=== PATIENT | female | born 1965 | race Caucasian/White ===

== ENCOUNTER 2022-10-17 15:58 | Emergency (ER) | payer OTHER ==
[~2022-10-17] VITALS: Ht 162.6 cm; Wt 63.5 kg
[2022-10-17 16:48] VITALS: BP_SYST 139; PULSE 120; RESP 16; TEMP 97.8; O2SAT 98
--- NOTE | 2022-10-17 16:53 | NUR ---
Patient triaged and placed in waiting room. Pt C/O RUQ pain X3 years. States she needs a colonscopy. VSS and patient appears in no acute distress at this time. Accompanied by family, awaiting available bed, and MD notified of need for MSE.
[2022-10-17 18:35] LABS: BASOPHILS % (AUTO) 0.4 % (0.0-2.0); EOSINOPHILS % (AUTO) 0.1 % (0.0-4.0); HEMATOCRIT 42.3 % (36-48); HEMOGLOBIN 14.3 g/dL (12.0-16.0); LYMPHOCYTES # (AUTO) 0.4 K/uL (1.0-5.5); LYMPHOCYTES % (AUTO) 9.8 % (20.5-51.5); MEAN CORPUSCULAR HEMOGLOBIN 32 pg (27-31); MEAN CORPUSCULAR HGB CONC 34 % (32-36); MEAN CORPUSCULAR VOLUME 94 fL (79.0-98.0); MONOCYTES # (AUTO) 0.4 K/uL (0.0-1.0); MONOCYTES % (AUTO) 8.3 % (1.7-9.3); NEUTROPHILS # (AUTO) 3.6 K/uL (1.8-7.7); NEUTROPHILS % (AUTO) 81.4 % (40.0-70.0); PLATELET COUNT (AUTO) 190 K/uL (130-430); RED BLOOD CELL COUNT(AUTO) 4.49 MIL/uL (4.2-6.2); WHITE BLOOD COUNT (AUTO) 4.4 K/uL (4.8-10.8)
[2022-10-17 18:50] LABS: BILIRUBIN,URINE NEGATIVE (NEGATIVE); BLOOD, URINE NEGATIVE (NEGATIVE); CLARITY/URINE SL CLOUDY (CLEAR); COLOR,URINE YELLOW (YELLOW); GLUCOSE,URINE NEGATIVE (NEGATIVE); KETONES,URINE 1+ (NEGATIVE); LEUKOCYTE ESTERASE ,URINE NEGATIVE (NEGATIVE); NITRITE, URINE NEGATIVE (NEGATIVE); PROTEIN URINE 1+ (NEGATIVE); UROBILINOGEN,URINE 0.2 (0.2-1.0)
[2022-10-17 19:01] LABS: ALBUMIN 4.3 g/dL (3.4-4.8); CALCIUM 10.1 mg/dL (8.4-11.0); CREATININE 0.71 mg/dL (0.55-1.30); TOTAL BILIRUBIN 0.6 mg/dL (0.0-1.0)
[2022-10-17 19:32] LABS: BACTERIA,URINE RARE /HPF (None Seen); RBC,URINE 0-3 /HPF (0-3)
[2022-10-17 19:33] LABS: MUCUS,URINE 1+ /LPF (None Seen)
--- NOTE | 2022-10-17 20:00 | NUR ---
Patient discharged by Dr. Cardoso.
[2022-10-17] MEDS ORDERED: ONDA-8 TL (20:33)
[2022-10-17] MEDS ORDERED: DICY10CA13 PO (20:33)
[2022-10-17] MEDS ORDERED: IBUP-1969 PO (20:33)
--- NOTE | 2022-10-17 20:56 | NUR ---
patient reevaluated, currently no active abdominal pain no additional nausea. reports feeling better. wanting to eat. Discussed all lab findings. Discussed CTAP, US findings. Patient discharged by me. Rx given for ibuprofen, tylenol, zofran
--- NOTE | 2022-10-17 20:57 | NUR ---
Patient given written and verbal discharge instructions by Dr Cardoso and verbalizes understanding. ER MD discussed with patient the results and treatment provided. Patient in stable condition. Rx of Dicyclomine, Ibuprofen, Ondansetron given. Patient educated on pain management and to follow up with PMD. Opportunity for questions provided and answered Dr Cardoso.
== END 2022-10-17 20:10 | disposition home or self-care (01) ==
LOC: SED 15:58
DX: R10.31 Right lower quadrant pain (principal); R11.2 Nausea with vomiting, unspecified; E86.0 Dehydration; R74.01 Elevation of levels of liver transaminase levels; Z79.899 Other long term (current) drug therapy
CPT/HCPCS: 36415; 76376; 76705; 80053; 81000; 83605; 83690; 85025; 87040; 87086; 99284